=== PATIENT | female | born 1940 | race Caucasian/White ===

== ENCOUNTER 2017-09-02 07:07 | Outpatient (CLI) | payer OTHER ==
[~2017-09-02 07:07] MED LIST: ATENOLOL25 MG PO; GAS RELIEF125 M1 PO; LEVSIN/SL0.125 MG PO; LISINOPRIL2.5 MG; METFORMIN HCL500 MG PO
== END 2017-09-02 07:38 | disposition home or self-care (01) ==
LOC: LAB 07:07
DX: Z85.038 Personal history of other malignant neoplasm of large intestine (principal)

== ENCOUNTER 2017-09-11 06:40 | Day surgery (SDC) | payer OTHER | END 2017-09-11 10:10 | disposition home or self-care (01) | LOC: AMB-ENDOS 06:40 | DX: D12.4 Benign neoplasm of descending colon (principal); Z85.038 Personal history of other malignant neoplasm of large intestine; Z08 Encounter for follow-up examination after completed treatment for malignant neoplasm; Z90.49 Acquired absence of other specified parts of digestive tract ==

== ENCOUNTER 2018-04-10 08:32 | Outpatient (CLI) | payer OTHER | END 2018-04-10 09:18 | disposition home or self-care (01) | LOC: LAB 08:32 | DX: E11.9 Type 2 diabetes mellitus without complications (principal); I10 Essential (primary) hypertension; E55.9 Vitamin D deficiency, unspecified; E03.8 Other specified hypothyroidism ==

== ENCOUNTER 2018-04-21 09:54 | Outpatient (CLI) | payer OTHER | END 2018-04-21 10:30 | disposition home or self-care (01) | LOC: NUCLEAR 09:54 | DX: M81.0 Age-related osteoporosis without current pathological fracture (principal) ==

== ENCOUNTER 2018-10-29 06:20 | Day surgery (SDC) | payer OTHER | END 2018-10-29 10:55 | disposition home or self-care (01) | LOC: AMB-ENDOS 06:20 | DX: D12.4 Benign neoplasm of descending colon (principal) ==

== ENCOUNTER 2019-10-29 07:25 | Outpatient (CLI) | payer OTHER | END 2019-10-29 07:32 | disposition home or self-care (01) | LOC: LAB 07:25 | PROVIDERS: ATTEND Family Medicine Adult Medicine | DX: I11.9 Hypertensive heart disease without heart failure (principal); E11.9 Type 2 diabetes mellitus without complications; E55.9 Vitamin D deficiency, unspecified; E78.49 Other hyperlipidemia ==